=== PATIENT | male | born 1960 | race Hispanic/Latino ===

== ENCOUNTER 2017-05-10 13:43 | Emergency (ER) | payer SELFPAY ==
[2017-05-10 13:49] VITALS: BMI 24.4
[2017-05-10] MEDS ORDERED: Sodium Chloride 0.9% 1,000 ML IV ONE (13:50)
[2017-05-10 13:57] VITALS: RESP 16
[2017-05-10 14:12] LABS: BASO # 0.1 K/uL (0.0-0.2); BASO % 0.8 % (0.0-2.0); EOS # 0.1 K/uL (0.0-0.7); EOS % 1.2 % (0.0-4.0); HEMOGLOBIN 14.1 g/dL (12.0-18.0); LYMPH # 0.9 K/uL (1.0-4.3); LYMPH % 14.4 % (20.0-40.0); MEAN CELL VOLUME 93.8 fL (80.0-94.0); MEAN CORPUSCULAR HEMOGLOBIN 32.5 pg (27.0-31.0); MEAN CORPUSCULAR HGB CONC 34.6 g/dL (33.0-37.0); MEAN PLATELET VOLUME 8.3 fL (7.2-11.7); MONO # 0.6 K/uL (0.0-0.8); MONO % 8.6 % (0.0-10.0); NEUT # 4.9 K/uL (1.8-7.0); RBC 4.33 Mil/uL (4.40-5.90); WHITE BLOOD COUNT 6.5 K/uL (4.8-10.8)
[2017-05-10 14:26] LABS: ALB/GLOB RATIO 1.1 (1.0-2.1); ALBUMIN 4.2 g/dL (3.5-5.0); ALT/SGPT 23 U/L (21-72); AST/SGOT 19 U/L (17-59); BLOOD UREA NITROGEN 5 mg/dL (9-20); CALCIUM 9.1 mg/dl (8.6-10.4); GFR AFRICAN-AMERICAN > 60; GFR NON-AFRICAN AMERICAN > 60
[2017-05-10 14:41] LABS: CARBAMAZEPINE < 3.0 ug/mL (4.0-12.0)
[2017-05-10 14:42] VITALS: TEMP 98.2; O2SAT 99
[2017-05-10 14:42] LABS: VALPROIC ACID < 10.0 ug/mL (50.0-100.0)
[2017-05-10 14:50] LABS: DILANTIN (PHENYTOIN) < 3.0 ug/mL (10-20)
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
[2017-05-10 16:24] VITALS: BP 141/70; PULSE 88
== END 2017-05-10 16:23 | disposition home or self-care (01) ==
LOC: C.ER 13:43
DX: R56.9 Unspecified convulsions (principal)
CPT/HCPCS: 80053; 80156; 80164; 80184; 80185; 82550; 82948; 85025; 96360; 99285; G0480; J7040

== ENCOUNTER 2017-08-15 09:37 | Emergency (ER) | payer MEDICAID ==
[2017-08-15 09:37] VITALS: BMI 24.4
[2017-08-15 10:47] VITALS: RESP 16
--- NOTE | 2017-08-15 12:52 | C.PDOC ---
History Of Present Illness 57 y/o male, brought to ER by [employer], complaining of feeling depressed. Patient was found by [employer] in the backyard of his home which was recently foreclosed. Patient denies having suicidal ideation and homicidal ideation. Time Seen by Provider: 08/15/17 09:55 Chief Complaint (Nursing): Psychiatric Evaluation History Per: Patient History/Exam Limitations: no limitations Onset/Duration Of Symptoms: Days Current Symptoms Are (Timing): Still Present Severity: Moderate Past Medical History Reviewed: Historical Data, Nursing Documentation, Vital Signs Vital Signs: Last Vital Signs Temp 98.8 F 08/15/17 10:46 Pulse 89 08/15/17 10:46 Resp 16 08/15/17 10:46 BP 129/89 08/15/17 10:46 Pulse Ox 99 08/15/17 13:04 - Medical History PMH: Benign Prostatic Hyperplasia, Seizures Denies: Diabetes, Hepatitis, HIV, HTN, Sexually Transmitted Disease Other Surgeries: Hx of surgeries Family History: States: No Known Family Hx - Social History Hx Alcohol Use: No (unknown) Hx Substance Use: No (unknown) - Immunization History Hx Tetanus Toxoid Vaccination: No Hx Influenza Vaccination: No Hx Pneumococcal Vaccination: No Review Of Systems Except As Marked, All Systems Reviewed And Found Negative. Constitutional: Negative for: Fever, Chills Psych: Positive for: Depression Physical Exam - Physical Exam Appears: Non-toxic, No Acute Distress Skin: Normal Color, Warm, Dry Head: Atraumatic, Normacephalic Eye(s): bilateral: Normal Inspection Nose: Normal Oral Mucosa: Moist Neck: Supple Chest: Symmetrical Cardiovascular: Rhythm Regular Respiratory: Normal Breath Sounds, No Rales, No Rhonchi, No Wheezing Gastrointestinal/Abdominal: Normal Exam, Soft, No Tenderness Neurological/Psych: Oriented x3, Other (tangential thoughts) ED Course And Treatment O2 Sat by Pulse Oximetry: 99 (RA) Pulse Ox Interpretation: Normal Medical Decision Making Medical Decision Making: Plan: --Crisis Evaluation - crisis cleared for discharged by Dr. Garrett Disposition Discussed With : Mindi Garrett Doctor Will See Patient In The: Office Counseled Patient/Family Regarding: Diagnosis, Need For Followup - Disposition Disposition: HOME/ ROUTINE Disposition Time: 13:05 Condition: STABLE Additional Instructions: follow up with medical clinic in 2 days call to make an appointment return to ER if symptoms worsens or progress Instructions: Depression Forms: [facility] (Malawian), General Discharge Instructions - Clinical Impression Clinical Impression: Homeless, Depression - Scribe Statement The provider has reviewed the documentation as recorded by the Racielibe Joanna White Provider Attestation: All medical record entries made by the Racielibe were at my direction and personally dictated by me. I have reviewed the chart and agree that the record accurately reflects my personal performance of the history, physical exam, medical decision making, and the department course for this patient. I have also personally directed, reviewed, and agree with the discharge instructions and disposition.
[2017-08-15 13:20] VITALS: BP 122/78; PULSE 82; TEMP 98.2; O2SAT 100
== END 2017-08-15 13:18 | disposition home or self-care (01) ==
LOC: C.ER 09:37
DX: F32.9 Major depressive disorder, single episode, unspecified (principal); Z59.0 Homelessness

== ENCOUNTER 2017-08-30 20:56 | Emergency (ER) | payer MEDICAID ==
[2017-08-30 20:58] VITALS: BMI 24.4
[2017-08-30 21:05] VITALS: PULSE 78; RESP 18; TEMP 98; O2SAT 98
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
--- NOTE | 2017-08-30 22:03 | C.PDOC ---
History Of Present Illness This is Dr. Carlisle chart nd not seen by me. Time Seen by Provider: 08/30/17 21:07 Chief Complaint (Nursing): Psychiatric Evaluation Past Medical History Vital Signs: Last Vital Signs Temp 98 F 08/30/17 21:00 Pulse 78 08/30/17 21:00 Resp 18 08/30/17 21:00 BP Pulse Ox 98 08/30/17 23:36 - Medical History PMH: Benign Prostatic Hyperplasia, Seizures Denies: Diabetes, Hepatitis, HIV, HTN, Sexually Transmitted Disease Family History: States: Unknown Family Hx - Social History Hx Alcohol Use: No (unknown) Hx Substance Use: No (unknown) - Immunization History Hx Tetanus Toxoid Vaccination: No Hx Influenza Vaccination: No Hx Pneumococcal Vaccination: No ED Course And Treatment O2 Sat by Pulse Oximetry: 98 Disposition - Disposition Disposition: HOME/ ROUTINE Condition: STABLE Instructions: Traumatic Brain Injury Forms: [facility] (Korean) - Clinical Impression Clinical Impression: TBI (traumatic brain injury)
== END 2017-08-30 22:10 | disposition home or self-care (01) ==
LOC: C.ER 20:56
DX: S06.9X0D Unspecified intracranial injury without loss of consciousness, subsequent encounter (principal); X58.XXXD Exposure to other specified factors, subsequent encounter